=== PATIENT | female | born 1965 | race Caucasian/White ===

== ENCOUNTER 2024-11-18 11:28 | Emergency (ER) | payer OTHER, SELFPAY ==
[2024-11-18 11:33] VITALS: BP 108/67
[2024-11-18 11:52] LABS: COVID-19 Antigen Negative (Negative)
--- NOTE | 2024-11-18 12:13 | ED.GENMED ---
History of Present Illness
General
Chief Complaint: Cold/Flu/URI Symptoms
Source: patient
Time Seen by Provider: 11/18/24 12:07
History of Present Illness
History of Present Illness:
59-year-old female presenting the ER for evaluation of cough, intermittent nausea, body aches and fatigue that has been ongoing since Tuesday. No known sick contactsor recent antibiotics although patient does note she is currently staying in this
area with her sister and does not live here regularly. Patient did not take any medications for symptoms prior to arrival. Denies any chest pain, shortness of breath, abdominal pain, urinary symptoms or bowel changes.
Past History
Past History
ED Past Medical History: Psychiatric (ADHD)
ED Past Surgical History: Gynecological
Social History
Tobacco: Former smoker
Alcohol: None
Drug: None
Personal: Single
Living: with family
Review of Systems
Review of Systems
All Other Systems: ROS reviewed and negative except as documented in HPI and ROS
Phy Exam
Physical Exam
Physical Exam:
GENERAL: Alert , in no apparent distress
EYE: conjunctiva clear
NECK: Supple
ENT: o/p clr, mmm.
CARDIAC: Regular rate and rhythm
LUNGS: Clear breath sounds bilaterally, no acute respiratory distress, no wheezes/rales/rhonchi
NEUROLOGICAL: Alert and oriented
SKIN: Warm and dry, skin intact.
MUSCULOSKELETAL: well perfused.
PSYCH: Normal and appropriate interaction.
Scores
Heart Failure Risk
Heart Failure Risk Score: Not Applicable
Heart Score for Chest Pain Patients
STEMI patient?: Not applicable
Withdrawal Assessment of Alcohol
Withdrawal Assessment Completed?: Not applicable
Course
Orders/Labs/Results
Orders:
Orders
11/18/24 11:32
COVID-19 Antigen Urgent
Source: Nasal Swab
Influenza A+B Rapid Molecular Urgent
JOSE F Source: Nasal Swab
Specimen Description:
Vital Signs
Initial and Last Documented VS:
Initial Vital Signs
Temp Pulse Resp BP Pulse Ox
97.6 F 69 20 108/67 100
11/18/24 11:33 11/18/24 11:33 11/18/24 11:33 11/18/24 11:33 11/18/24 11:33
Last Documented Vital Signs
Temp Pulse Resp BP Pulse Ox
97.6 F 88 22 141/70 98
11/18/24 11:33 11/18/24 12:21 11/18/24 12:21 11/18/24 12:21 11/18/24 12:21
MDM/Problems Addressed
Differential Diagnosis Includes:
COVID, flu, other viral etiology, pneumonia
MDM/Problems Addressed:
59-year-old female presented to the ER for evaluation of flulike symptoms that began on Tuesday. Afebrile and in no acute distress here. COVID and flu testing ordered in triage and patient positive for influenza A. Not a candidate for Tamiflu
given duration of her illness. Advised continued supportive care. Prescription for inhaler and Zofran sent to pharmacy. Stable for discharge home and aware of return precautions.
*Pulse Oximetry
Patient hypoxic: no
*Critical Care Note
Total Time (30-74mins, 75-104mins- exclusive of procedures): Not Applicable
ED Attending Note
-
Portions of this chart may have been created with voice recognition software.� Occasional wrong word or��sound alike� substitutions may have occurred due to the inherent limitations of voice recognition software.
Discharge Plan
Departure
Patient Disposition: Home (Routine Discharge)
Date of Disposition: 11/18/24
Time of Disposition: 12:13
Patient with high blood pressure during this ER visit?: No
Discharge Problem:
Influenza A
Instructions: Flu in adults - Discharge instructions
Prescriptions:
New
albuterol sulfate 90 mcg/actuation HFA aerosol inhaler
2 puff inhalation Q6H PRN (Reason: shortness of breath or wheezing) Qty: 6.7 0RF
ondansetron 4 mg tablet,disintegrating
4 mg PO Q8H PRN (Reason: nausea and vomiting) Qty: 10 0RF
Interventions
Interventions:
*Risk Screen - Suicide Last Done: 11/18/24 11:33
*General Assessment Last Done: 11/18/24 11:33
*Neglect/Abuse Screening Last Done: 11/18/24 11:33
ED- Fall Risk Assessment Last Done: 11/18/24 12:21
*ED COVID-19 Vaccine History Last Done: 11/18/24 11:33
*Nursing Disposition Last Done: 11/18/24 12:21
ED- Pulmonary Assessment Last Done: 11/18/24 12:21
Discharge Date and Time
Discharge Date/Time: 11/18/24 12:45
Print Language: [id number]
[2024-11-18 12:21] VITALS: BP 141/70
== END 2024-11-18 12:45 | disposition home or self-care (01) ==
LOC: EMR 11:28
PROVIDERS: EMERGENCY PHYSICIAN Emergency Medicine
DX: J10.1 Influenza due to other identified influenza virus with other respiratory manifestations (principal); Z87.891 Personal history of nicotine dependence; Z11.52 Encounter for screening for COVID-19
CPT/HCPCS: 99283; 87502; 87811